=== PATIENT | male | born 1985 | race Caucasian/White ===

== ENCOUNTER → 2017-07-05 | Outpatient (REF) ==
[~2017-07-05] MED LIST: CEPHALEXIN500 M1 PO
== END ==
LOC: WSOH 08:57
DX: Z02.89 Encounter for other administrative examinations (principal)
CPT/HCPCS: G0463

== ENCOUNTER 2018-07-03 12:59 | Emergency (ER) | payer BC ==
[~2018-07-03] VITALS: Ht 165.1 cm; Wt 72.3 kg
[2018-07-03 13:04] VITALS: BP 124/81; TEMP 98.1
[2018-07-03 13:43] LABS: COLLECTION METHOD CLEAN CATCH
[2018-07-03 13:50] LABS: PH 7 (5-8); SQUAMOUS EPITHELIAL None Seen /hpf; URINE APPEARANCE Clear; URINE BACTERIA None Seen /hpf; URINE BILIRUBIN Negative (NEGATIVE); URINE BLOOD 1+ (NEGATIVE); URINE COLOR Yellow; URINE GLUCOSE Negative (NEGATIVE); URINE KETONE Negative (NEGATIVE); URINE LEUKOCYTE ESTERASE Negative (NEGATIVE); URINE NITRATE Negative (NEGATIVE); URINE PROTEIN(semi-quant) Negative (NEGATIVE); URINE RBC 0-2 /hpf; URINE UROBILINOGEN Negative (NEGATIVE)
[2018-07-03 14:48] VITALS: PULSE 86
== END 2018-07-03 14:48 | disposition home or self-care (01) ==
LOC: COL.ER 12:59
PROVIDERS: Emergency Medicine
DX: R31.0 Gross hematuria (principal); Z98.52 Vasectomy status

== ENCOUNTER 2021-08-25 09:42 | Emergency (ER) | payer BC ==
[~2021-08-25] VITALS: Ht 165.1 cm; Wt 78.2 kg
[2021-08-25 09:49] VITALS: TEMP 97.7
[2021-08-25 10:21] LABS: BASO # 0.1 K/mm3 (0.0-0.2); BASO % 0.6 % (0.0-2.0); EOS # 0.2 K/mm3 (0.0-0.7); EOS % 2.3 % (0-4.0); GRAN # 4.9 K/mm3 (1.4-6.5); GRAN % 56.9 % (42.2-75.2); HEMATOCRIT 45.5 % (42.0-52.0); HEMOGLOBIN 15.9 g/dl (13.5-18.0); LYMPH # 2.7 K/mm3 (1.2-3.4); LYMPH % 31.2 % (20.0-51.0); MEAN CELL VOLUME 91 fl (80.0-100.0); MEAN CORPUSCULAR HEMOGLOBIN 32 pg (27.0-31.0); MEAN CORPUSCULAR HGB CONC 35 g/dl (33.0-37.0); MONO # 0.7 K/mm3 (0.1-0.6); MONO % 8.6 % (1.7-9.3); PLATELET COUNT 304 K/mm3 (130-400); RED BLOOD COUNT 5.02 M/mm3 (4.20-5.60); REDCELL DISTRIBUTION WIDTH-CV 12.3 % (11.5-14.5)
[2021-08-25 10:34] LABS: BILIRUBIN,TOTAL 0.3 mg/dL (0.2-1.2); C-REACTIVE PROTEIN 0.38 mg/dL (0.00-0.50); CALCIUM 9.3 mg/dL (8.4-10.2); CREATININE, serum 0.96 mg/dL (0.72-1.25); POTASSIUM 4.3 mmol/L (3.5-4.5); TOTAL PROTEIN 7.2 gm/dL (6.2-8.1)
[2021-08-25 11:36] LABS: COLLECTION METHOD CLEAN CATCH
[2021-08-25 11:44] LABS: MUCOUS Present /lpf; PH 6 (5-8); SQUAMOUS EPITHELIAL 0-2 /hpf; URINE APPEARANCE Clear; URINE BACTERIA None Seen /hpf; URINE BILIRUBIN Negative (NEGATIVE); URINE BLOOD Negative (NEGATIVE); URINE COLOR Yellow; URINE GLUCOSE Negative (NEGATIVE); URINE KETONE Negative (NEGATIVE); URINE LEUKOCYTE ESTERASE Negative (NEGATIVE); URINE NITRATE Negative (NEGATIVE); URINE PROTEIN(semi-quant) Negative (NEGATIVE); URINE UROBILINOGEN Negative (NEGATIVE)
[2021-08-25] MEDS ORDERED: NORCO 325 MG-51 TAB PO (13:57)
[2021-08-25 14:09] VITALS: BP 135/88; PULSE 72
== END 2021-08-25 14:10 | disposition home or self-care (01) ==
LOC: COL.ER 09:42
PROVIDERS: Nurse Practitioner
DX: R10.11 Right upper quadrant pain (principal); F17.210 Nicotine dependence, cigarettes, uncomplicated
CPT/HCPCS: J1170; J2405; J7030; Q9967